=== PATIENT | female | born 1965 | race Caucasian/White ===

== ENCOUNTER → 2017-04-17 | Outpatient (CLI) | payer BC | END | disposition home or self-care (01) | LOC: C.LABMFLN 13:17 | PROVIDERS: ATTEND Family Medicine | DX: E83.52 Hypercalcemia (principal) ==

== ENCOUNTER 2024-06-13 06:00 | Inpatient (IN) ==
--- NOTE | 2024-05-08 14:28 | PAT Medication Instructions ---
Medication Instructions Date of Service May 08, 2024 Home Medications Medication Instructions Recorded hydroxyzine HCl 25 mg tablet 25 mg PO HS PRN insomnia #90 tabs 09/02/19 hydroxyzine HCl 25 mg tablet 25 mg PO HS PRN insomnia atorvastatin 20 mg tablet 20 mg PO PM cyclobenzaprine 10 mg tablet 10 mg PO UD PRN Pain fenofibrate nanocrystallized 145 mg tablet 145 mg PO QPM meclizine 25 mg tablet 25 mg PO DAILY PRN Dizziness meloxicam 15 mg tablet 15 mg PO QPM multivitamin 1 tab PO QAM omega-3 acid ethyl esters 1 gram capsule 1 cap PO QAM ASK your surgeon for instructions meloxicam 15 mg tablet 15 mg PO QPM STOP taking 2 weeks before surgery (or as soon as possible if surgery is within 2 weeks) omega-3 acid ethyl esters 1 gram capsule 1 cap PO QAM STOP taking 24 hours before surgery fenofibrate nanocrystallized 145 mg tablet 145 mg PO QPM DO NOT take the morning of surgery multivitamin 1 tab PO QAM Take morning of surgery With a small sip of water, OTHERWISE NOTHING TO EAT OR DRINK AFTER MIDNIGHT: cyclobenzaprine 10 mg tablet 10 mg PO UD PRN Pain (if needed) meclizine 25 mg tablet 25 mg PO DAILY PRN Dizziness (if needed) Take evening before surgery hydroxyzine HCl 25 mg tablet 25 mg PO HS PRN insomnia (if needed) atorvastatin 20 mg tablet 20 mg PO PM cyclobenzaprine 10 mg tablet 10 mg PO UD PRN Pain (if needed) meclizine 25 mg tablet 25 mg PO DAILY PRN Dizziness (if needed) Other Notes If you have any questions please call us at [phone] or [phone] or [phone] or [phone]
--- NOTE | 2024-05-14 10:52 | Anesthesiology Consultation ---
Date of Service May 14, 2024 Assessment & Plan (1) Encounter for pre-operative examination: - Infectious disease screening: Per assessment on 05/14/24- No known recent infectious disease contacts or current infectious disease symptoms. - Patient acceptable risk for surgery pending surgeon-ordered PCP preop evaluation (Dr. David Floyd, appt 05/24). Chart Review Chart Review: Patient seen in Pre Admission Testing Teaching & Discussion Pre-Anesthesia Teaching/Discussion Notes: Instructed NPO after midnight before surgery,except medications with 15 cc of water. Medication instructions provided according to the PAT guidelines. History Surgery Operation Date: 06/13/24 09:05 Proposed Procedures p L4-L5 Decompression and Fusion with Spinal Cord Monitoring - Gurwinder Kee, Height/Weight Height: 5 ft 6 in Weight: 89.9 kg Allergies Allergy/AdvReac Type Severity Reaction Status Date / Time amoxicillin Allergy Intermediate lips and Verified 05/08/24 13:08 hands itching cephalexin Allergy Intermediate lips and Verified 05/08/24 13:08 hands itching doxycycline Allergy Intermediate lips and Verified 05/08/24 13:08 hands itching Medications Home Medications Medication Instructions Recorded Confirmed Last Taken hydroxyzine HCl 25 mg tablet 25 mg PO HS PRN insomnia #90 tabs 09/02/19 05/08/24 Unknown atorvastatin 20 mg tablet 20 mg PO PM 05/08/24 05/08/24 Unknown cyclobenzaprine 10 mg tablet 10 mg PO UD PRN Pain 05/08/24 05/08/24 Unknown fenofibrate nanocrystallized 145 145 mg PO QPM 05/08/24 05/08/24 Unknown mg tablet meclizine 25 mg tablet 25 mg PO DAILY PRN Dizziness 05/08/24 05/08/24 Unknown meloxicam 15 mg tablet 15 mg PO QPM 05/08/24 05/08/24 Unknown multivitamin 1 tab PO QAM 05/08/24 05/08/24 Unknown omega-3 acid ethyl esters 1 gram 1 cap PO QAM 05/08/24 05/08/24 Unknown capsule Past Medical History Medical History Anxiety Arthritis Benign positional vertigo Chronic obstructive pulmonary disease Degenerative disc disease Fibromyalgia Hyperlipidemia Osteoarthritis, generalized Exercise / Class Metabolic Activity II 4-5 Yardwork/Stairs/Walk up hill (one FS: No CP, no SOB) Past Family History Family History Other No family history of adverse response to anesthesia Past Surgical History Surgical History H/O tooth extraction Strabismus Repaired as a child Past Anesthesia History No Hx of Anesthesia Complications and No Family Hx of Anesthesia Complications History of PONV No Hx of PONV and No Hx of Motion Sickness Social History Smoking Status: Current some day smoker Do You Dip or Chew Tobacco: No Smoking End Date: Quit regular use in 2021, Quit entirely 04/2024 Hx Alcohol Use: Yes Alcohol type: hard liquor alcohol intake frequency: a few times a week Hx Substance Use: No substance use type: does not use Review of Systems Patient denies chest pain, shortness of breath, dyspnea on exertion, fever, chills, cough, wheezing, palpitations. Physical Exam Vital Signs BP 120/83 P 81 TEMP 97.7 SP02 95%RA RESP 16 Physical Full cervical extension range of motion. Full TMJ range of motion. TMD > 3.5 finger breaths Mallampati Score II Dentition: intact, + upper front implants Lungs: clear throughout to auscultation Cardiac: regular rate and rhythm, no murmurs noted Spine: normal Carotid arteries: negative bruit Extremities: no LE edema Lab Results Anesthesia Preop Results Results Anesthesia Widget: WBC 8.25 K/ul (4.8-10.8) 05/14/24 Hgb 13.4 g/dl (12.0-16.0) 05/14/24 Hct 40.0 % (37.0-47.0) 05/14/24 Plt 322 K/uL (130-400) 05/14/24 Na 138 mmol/L (136-145) 05/14/24 K 4.3 mmol/L (3.5-5.1) 05/14/24 Cl 104 mmol/L (98-107) 05/14/24 CO2 25 mmol/L (21-32) 05/14/24 BUN 26 mg/dl (6-23) H 05/14/24 Creat 0.86 mg/dl (0.6-1.2) 05/14/24 Glucose Level 90 mg/dl (70-99(Fasting)) 05/14/24 PT 10.3 Seconds (9.0-12.0) 05/14/24 PTT 29 Seconds (21-31) 05/14/24 INR 0.9 (0.9-1.1) 05/14/24 Urine Color Yellow 05/14/24 Urine Appearance Clear (Clear) 05/14/24 Urine pH 5.5 (4.5-7.5) 05/14/24 Urine Specific Momence 1.009 (1.000-1.030) 05/14/24 Urine Protein Negative (Negative) 05/14/24 Urine Glucose (UA) Negative (Negative) 05/14/24 Urine Ketones Negative (Negative) 05/14/24 Urine Blood Negative (Negative) 05/14/24 Urine Nitrite Negative (Negative) 05/14/24 Urine Bilirubin Negative (Negative) 05/14/24 Urine Urobilinogen Negative (Negative) 05/14/24 Urine Leukocyte Esterase Negative (Negative) 05/14/24 Blood Type O Positive 05/14/24 Antibody Screen NEGATIVE 05/14/24 Testing Electrocardiogram Date: 05/14/24 NSR at 72bpm. "Normal ECG" Chest X-Ray Date: 05/14/24 FINDINGS: Lung volumes are normal. Lungs are clear. There is no pneumothorax or pleural effusion. Cardiac size is normal. Mediastinal contours are normal. There is no evidence for pulmonary edema. IMPRESSION: No acute cardiopulmonary findings.
[~2024-06-13 06:00] MED LIST: LR 15ML/HR IV SCH; LR 60ML/HR IV SCH; ceFAZolin 2000MG 2,000 MG/15 ML SYR IV SCH
[2024-06-13] MEDS: SODIUM CHLORIDE 0.9% 1,000 ML IV SCH ×2 (06:37→11:02)
[2024-06-13] MEDS: CeleBREX 200 MG CAP PO SCH (06:38)
[2024-06-13] MEDS: GABAPENTIN 600 MG DOSE PO SCH (06:38)
[2024-06-13] MEDS: ACETAMINOPHEN 500 MG TAB PO SCH (06:38)
[2024-06-13] MEDS ORDERED: ONDANSETRON INJ 2 MG/ML 2 ML VIAL ONE (06:43)
[2024-06-13] MEDS ORDERED: LIDOCAINE 2% 2 ML VIAL/AMP(20MG/ML) INFIL ONE (06:43)
[2024-06-13] MEDS ORDERED: DEXAMETHASONE SOD INJ 4 MG/ML VIAL ONE (06:43)
[2024-06-13] MEDS ORDERED: MIDAZOLAM HCL 1 MG/ML 2ML VIAL ONE (06:43)
[2024-06-13] MEDS ORDERED: ROCURONIUM BROMIDE 10 MG/ML 5 ML VIAL IV ONE (06:43)
[2024-06-13] MEDS ORDERED: PROPOFOL IV EMULSION 10 MG/ML 20 ML VIAL IV ONE (06:43)
[2024-06-13] MEDS ORDERED: fentaNYL citrate PF 100 MCG/2 ML VIAL ONE ×2 (06:43→09:18)
[2024-06-13] MEDS ORDERED: ePHEDrine sulfate 50 MG/ML AMP IV PRN (07:12)
[2024-06-13] MEDS ORDERED: ATROPINE SULFATE 0.1 MG/ML 10ML SYR IV PRN (07:12)
[2024-06-13] MEDS ORDERED: DROPERIDOL 5 MG/2 ML VIAL IV PRN (07:12)
[2024-06-13] MEDS ORDERED: PROMETHAZINE HCL 6.25 MG in SODIUM CHLORIDE 0.9% 50 ML IV PRN (07:12)
--- NOTE | 2024-06-13 07:32 | History & Physical Bridge Note ---
Date of Service June 13, 2024 History & Physical Bridge Note I have examined the patient, reviewed the History & Physical and in the interval since the performance of the History & Physical I have noted the following changes of clinical significance: no changes noted
--- NOTE | 2024-06-13 07:33 | History & Physical Report ---
Date of Service June 13, 2024 Assessment & Plan (1) Lumbar disc herniation with radiculopathy: Plan: L4-L5 decompression and fusion History of Present Illness Chief Complaint: Back and bilateral leg pain Primary Care Provider: David Floyd DO This is a 59-year-old female presents with chronic persistent back and leg pain after failing course of nonoperative care is here for surgical invention. Allergies Allergy/AdvReac Type Severity Reaction Status Date / Time amoxicillin Allergy Intermediate lips and Verified 06/13/24 06:17 hands itching cephalexin Allergy Intermediate lips and Verified 06/13/24 06:17 hands itching doxycycline Allergy Intermediate lips and Verified 06/13/24 06:17 hands itching Home Medications Medication Instructions Recorded Confirmed Type hydroxyzine HCl 25 mg tablet 25 mg PO HS PRN insomnia #90 tabs 09/02/19 06/13/24 Rx atorvastatin 20 mg tablet 20 mg PO PM 05/08/24 06/13/24 History cyclobenzaprine 10 mg tablet 10 mg PO UD PRN Pain 05/08/24 06/13/24 History fenofibrate nanocrystallized 145 145 mg PO QPM 05/08/24 06/13/24 History mg tablet meclizine 25 mg tablet 25 mg PO DAILY PRN Dizziness 05/08/24 06/13/24 History meloxicam 15 mg tablet 15 mg PO QPM 05/08/24 06/13/24 History multivitamin 1 tab PO QAM 05/08/24 06/13/24 History omega-3 acid ethyl esters 1 gram 1 cap PO QAM 05/08/24 06/13/24 History capsule Past Med/Surg History Problem List (Updated 06/13/24 @ 07:33 by Gurwinder Kee DO) Lumbar disc herniation with radiculopathy Allergic rhinitis Depression with anxiety (Chronic) COPD (chronic obstructive pulmonary disease) (Chronic) Hyperlipemia, idiopathic familial (Chronic) Vitamin D deficiency (Chronic) Medical History Anxiety Arthritis Benign positional vertigo Chronic obstructive pulmonary disease Degenerative disc disease Fibromyalgia Hyperlipidemia Osteoarthritis, generalized Surgical History H/O tooth extraction Strabismus Repaired as a child Family History Other No family history of adverse response to anesthesia Social History (Updated 09/04/19 @ 08:39 by Stacy Johnson MA) Smoking Status: Current some day smoker Tobacco Type: Cigarettes Smoking End Date: Quit regular use in 2021, Quit entirely 04/2024; Second Hand Exposure: Yes (in the past); Do You Dip or Chew Tobacco: No; Hx Alcohol Use: Yes Alcohol type: hard liquor Hx Substance Use: No Preferred Language: Spanish 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
[2024-06-13] MEDS: CLINDAMYCIN 900 MG/D5W 50 ML BAG IV ONE (07:41)
[2024-06-13] MEDS: BUPIVACAINE/EPINEPHRINE 0.25% 1:200,000 30 ML VIAL ONE (08:05)
[2024-06-13] MEDS: ceFAZolin 330 MG/ML 1 GM VIAL ONE (08:19)
[2024-06-13] MEDS ORDERED: ALBUTEROL HFA 8 GM INHALER INH ONE (08:52)
[2024-06-13] MEDS: FLOSEAL HEMOSTATIC MATRIX 10ML TOP ONE (09:09)
[2024-06-13] MEDS ORDERED: SUGAMMADEX SODIUM 200 MG/2 ML VIAL IV ONE (09:11)
[2024-06-13] MEDS ORDERED: HYDROmorphone INJ 2 MG/ML SYR/VIAL ONE (09:21)
--- NOTE | 2024-06-13 09:28 | Operative Report ---
Post Operative Report Pre & Post Diagnosis Operation Date: 06/13/24 07:45 Pre-Op Diagnosis: #1 lumbar spondylolisthesis with radiculopathy Post-Op Diagnosis: same I identified the patient and participated in the time-out.: Yes Procedure Operation Date: 06/13/24 07:45 Actual Procedures #1 lumbar decompression bilateral medial facetectomies and foraminotomies L3-L4 L4-5. #2 posterior spinal fusion L4-L5. #3 posterior instrumentation L4-5 #4 interbody fusion L4-5 per #5 placement of Spira 13 x 26 mm x 2 at L4-5 per #6 placement locally harvested morselized autograft posterior gutters. #7 placement is collagen sponge, with Koros in the posterior lateral gutters and os design interbody space. #8 placement of versa wrap of the exposed dura. Surgeon Gurwinder Kee, Hammer Runner None Estimated Blood Loss 50 Findings Consistent with Post-Op Diagnosis Specimens None Indications This is a 59-year-old female presents publish diagnosis of failed course of nonoperative care is here for surgical invention. Description of Procedure Patient was met with identified informed consent obtained. Patient was then taken to the operative suite underwent and patient placed in a prone position on the Travis table atop the Peter frame. All bony promises well-padded eyes inspected to ensure no external precipice upon the. This point the lumbar spine was prepped and draped in normal sterile fashion. Sharp dissection with the assistance of Bovie cautery 12 down to and exposing the lamina and transverse processes of L4-L5. From caudal to cephalad fashion complete laminectomy of L4 was performed including bilateral medial facetectomies and foraminotomies addressing severe subarticular and foraminal stenosis. This did include partial laminectomy of L3 with bilateral medial facetectomies to address all subarticular disease. Pedicle screws were then placed at L4-5 bilaterally with assistance of fluoroscopy and appropriately sized rods placed. By way of a transforaminal portion right a complete discectomy of L4-5 was performed endplates grade 2 subcortical bleeding bone 13 x 26 mm Spira cage filled with os design bone graft tapped in position. Then proceeded to the left transforaminal region at L4-5. Again discectomy performed endplates guarded to subcortical mean bone and a second 13 x 26 mm spiral cage filled with os designed tapped in position. The rods were then compressed locked into final position bilaterally. The transverse processes of L4-5 burred to subcortical bleeding bone. Infuse collagen sponge combined with Koros and local autograft placed in posterior gutters. Versa wrap placed over the exposed dura. 15 round JEANNE drain inserted. Incision was then closed with 1 Vicryl fascia 2-0 Vicryl subcutaneously and 4 Monocryl for final skin closure. Steri-Strips sterile dressing placed. Patient waken taken PACU stable condition. Please note spinal cord monitoring was utilized at the procedure no changes noted. Im ordering 20 grams of Triple Albert Lea Collagen Powder ([employer] [id number]) to treat an incision wound that was caused by a spine procedure. The incision is approximately 2 cm(W) x 4 cm(L) into the joint (D) in size and is a full thickness wound. Triple Albert Lea collagen comes in 1 gram packets so 20 packets were ordered. Given the size of the wound, with light to moderate exudate I chose to order a 20 day supply. The patient will be provided instructions for proper application of the collagen wound kit. The patient will be asked to apply the collagen powder daily and then cover it with sterile dressings dispensed. Collagen was selected as I expect the collagen to attract monocytes and fibroblasts, act as a sacrificial substrate for MMPs, and ultimately proved a matrix for tissue and vessel growth. The collagen will act as a primary dressing in this scenario. It is medically necessary for proper healing of these wounds to improve bioavailability and contact with each wound surface, this is also to help prevent infection of wounds and promote healing ultimately leading to a better healing outcome and limit the risk of infection. I attest to the content of the Intraoperative Record and any orders documented therein. Any exceptions are noted below.
--- NOTE | 2024-06-13 09:33 | Fluoroscopy Report ---
FL lumbar spine 2-3V CLINICAL HISTORY: L4-L5 DECOMPRESSION COMPARISON STUDY: None FLUOROSCOPY TIME: 16.3 seconds FLUOROSCOPY IMAGES: 2 EXPOSURE DOSE: 11.78 mGy FINDINGS: Laminectomy with discectomy, posterior interbody livia and screw fusion at L4-L5. No unexpect ed opaque foreign bodies. The hardware appears intact. IMPRESSION: Fluoroscopic assistance as above. ACT 112: Negative or not required by law. Electronically signed by: Kenny Atkinson M.D. 06/13/2024 9:31 AM
[2024-06-13] MEDS: HYDROmorphone INJ 2 MG/ML SYR/VIAL IV PRN (10:06)
[2024-06-13] MEDS ORDERED: ALUMINUM/MAGNESIUM SUSP 30 ML UDC PO PRN (11:07)
[2024-06-13] MEDS ORDERED: LORazepam 2 MG/1 ML VIAL IV PRN (11:07)
[2024-06-13] MEDS ORDERED: DO NOT ADMINISTER PNEUMOCOCCAL VACCINE PRN (11:07)
[2024-06-13] MEDS ORDERED: SOD PHOSPHATE/SOD BIPHOSPHATE ENEMA 132 ML BTL PR PRN (11:07)
[2024-06-13] MEDS ORDERED: bisacodyL 10 MG SUPP PR PRN (11:07)
[2024-06-13] MEDS ORDERED: FAMOTIDINE 20 MG TAB PO PRN (11:07)
[2024-06-13] MEDS ORDERED: DO NOT ADMINISTER FLU VACCINE PRN (11:07)
[2024-06-13] MEDS ORDERED: hydrOXYzine HCl 25 MG TAB PO PRN ×2 (11:07)
[2024-06-13] MEDS ORDERED: HYDROmorphone INJ 0.5 MG/0.5 ML SYR IV PRN (11:07)
[2024-06-13] MEDS ORDERED: ONDANSETRON 4 MG OD TAB PO PRN (11:07)
[2024-06-13] MEDS ORDERED: MECLIZINE HCL 25 MG TAB PO PRN (11:07)
[2024-06-13] MEDS ORDERED: MAGNESIUM HYDROXIDE SUSP 30 ML UDC PO PRN (11:07)
[2024-06-13] MEDS ORDERED: HYDROmorphone INJ 1 MG/ML SYRINGE IV PRN (11:07)
[2024-06-13] MEDS ORDERED: NALOXONE HCL 0.4 MG/1 ML VIAL/CARP IV PRN (11:07)
[2024-06-13] MEDS ORDERED: ACETAMINOPHEN 500 MG TAB PO PRN (11:07)
[2024-06-13] MEDS ORDERED: LORazepam 0.5 MG TAB PO PRN (11:07)
[2024-06-13] MEDS ORDERED: diphenhydrAMINE Capsule 25 MG CAP PO PRN (11:07)
[2024-06-13] MEDS: ONDANSETRON INJ 2 MG/ML 2 ML VIAL IV PRN (11:20)
[2024-06-13] MEDS: ALLERGY Noted to ORDERED Medication SCH (11:38)
[2024-06-13] MEDS: ACETAMINOPHEN 1,000 MG/100 ML VIAL IV PRN (11:59)
--- NOTE | 2024-06-13 12:24 | Hospitalist Consultation ---
Date of Consultation June 13, 2024 Assessment & Plan (1) Lumbar disc herniation with radiculopathy: S/p L4L5 decompression and fusion with spinal cord monitoring - Pain management, VTE PPx, and bowel regimen per surgical team - Pre-op H&H stable, renal function stable, EKG NSR - CBC + BMP am - Nausea following surgery- pending EKG to ensure QT appropriate (2) COPD (chronic obstructive pulmonary disease): H/o COPD - Stable, on 2L O2 via NC; wean as patient tolerates - No O2 at baseline - No evidence of exacerbation today - No home medications Plan HLD- Atorvastatin, fenofibrate Dispo: Admit Diet: Clear liquids, increase as tolerated VTE Prophylaxis: per surgical team Code: Full Supervising Physician Co-Signing Physician Notes I personally saw and examined the patient. I independently reviewed the labs, problem list, medication list, past medical history and family history. I verified all hernandez points and agree with Patel Brown PA-C with the following exceptions and/or additions: 59 year old POD#0 lumbar spinal decompression performed by Dr Kee today. O/E HS RRR, no murmurs, Chest CTAB, Abdo SNT, moving b/l toes with normal sensation A/P Lumbar decompression - no change in pre-operative radicular symptoms, pain control / bowel regimen by ortho spine, Hyperlipemia - continue atorvastatin Post operative mild hypoxia - incentive spirometer, wean O2 as able History of Present Illness Reason for Consultation: Medical Management Requesting Physician: Gurwinder Kee DO Attending Physician: Gurwinder Kee DO History of Present Illness 59-year-old female being evaluated for postop following L4-L5 compression and fusion with spinal cord monitoring. Patient 59-year-old female PMHx COPD, hyperlipidemia, fibromyalgia, depression and anxiety who is being evaluated today after surgical intervention. Patient resting in bed at time of visit. States pain is bothersome to her, but that she took pain medications not long ago and thinks it is helping some. Having complaints of nausea, no emesis. No current additional complaints to include chest pain, shortness of breath, palpitations, abdominal pain, N/D/C, numbness or tingling, LUTS, or headaches. Please see Dr. Negrete's attestation for adjustments/additions to treatment plan. Allergies Allergy/AdvReac Type Severity Reaction Status Date / Time amoxicillin Allergy Intermediate lips and Verified 06/13/24 06:17 hands itching cephalexin Allergy Intermediate lips and Verified 06/13/24 06:17 hands itching doxycycline Allergy Intermediate lips and Verified 06/13/24 06:17 hands itching Home Medications Medication Instructions Recorded Confirmed Type hydroxyzine HCl 25 mg tablet 25 mg PO HS PRN insomnia #90 tabs 09/02/19 06/13/24 Rx atorvastatin 20 mg tablet 20 mg PO PM 05/08/24 06/13/24 History cyclobenzaprine 10 mg tablet 10 mg PO UD PRN Pain 05/08/24 06/13/24 History fenofibrate nanocrystallized 145 145 mg PO QPM 05/08/24 06/13/24 History mg tablet meclizine 25 mg tablet 25 mg PO DAILY PRN Dizziness 05/08/24 06/13/24 History meloxicam 15 mg tablet 15 mg PO QPM 05/08/24 06/13/24 History multivitamin 1 tab PO QAM 05/08/24 06/13/24 History omega-3 acid ethyl esters 1 gram 1 cap PO QAM 05/08/24 06/13/24 History capsule Patient History Medical History Degenerative disc disease Fibromyalgia Arthritis Anxiety Hyperlipidemia Chronic obstructive pulmonary disease Benign positional vertigo Osteoarthritis, generalized Surgical History H/O tooth extraction Strabismus Repaired as a child Family History Other No family history of adverse response to anesthesia Social History Smoking Status: Current some day smoker Tobacco Type: Cigarettes Smoking End Date: Quit regular use in 2021, Quit entirely 04/2024; Second Hand Exposure: Yes (in the past); Do You Dip or Chew Tobacco: No; Hx Alcohol Use: Yes Alcohol type: hard liquor Hx Substance Use: No Preferred Language: Austrian Display Artist Required: No Beliefs That Will Affect Care: None Current Living Situation: Spouse Feels Safe at Home: Yes Safety Concerns: Feels Safe At This Time Assistive Devices: Glasses Review of Systems Review of Systems: All systems reviewed & are unremarkable except as noted in Subjective Physical Exam Physical Exam: General: No acute distress, laying in bed, eyes closed but talking to me Skin: Warm and dry, without rashes or lesions Head: Normocephalic, atraumatic Eyes: PERRL, conjunctivae clear, sclera non-icteric ENT: External ear and ear canal without swelling; nose atraumatic; good dentition Neck: Supple, no LAD Cardio: RRR, no M/G/R, S1 and S2 normal Resp: No respiratory distress, Lungs CTA in all lobes bilaterally, no wheezes, rales, or rhonchi Abdomen: Soft, symmetric, nontender; No masses or hepatosplenomegaly; Bowel sounds normoactive MSK: No deformities; pulses palpable and equal; no edema. Neuro: Awake, alert; CN grossly intact Psych: Appropriate mood and affect; good judgement and insight. 2 family members present in room at time of visit. Results & Data Results & Data Vital Signs (Past 12 Hours) Vital Signs Temp Pulse Pulse Resp BP BP Pulse Ox 06/13/24 12:08 36.4 C L 80 14 131/66 96 06/13/24 11:35 36.4 C L 70 16 111/70 99 06/13/24 11:07 36.3 C L 73 14 119/75 94 06/13/24 10:50 71 18 122/64 99 06/13/24 10:40 62 18 109/58 L 97 06/13/24 10:30 78 16 122/75 95 06/13/24 10:20 36.5 C 67 14 126/66 97 06/13/24 10:10 78 12 127/67 96 06/13/24 10:00 66 14 124/69 97 06/13/24 09:50 69 12 113/70 96 06/13/24 09:45 73 12 129/75 98 06/13/24 09:39 36.4 C L 74 14 149/98 H 97 06/13/24 06:29 37.3 C 73 18 153/98 H 98 O2 Del Method O2 Flow Rate 06/13/24 12:08 Nasal Cannula 2 06/13/24 11:35 Nasal Cannula 2.0 06/13/24 11:07 Nasal Cannula 2 06/13/24 10:50 Nasal Cannula 2 06/13/24 10:40 Nasal Cannula 2 06/13/24 10:30 Nasal Cannula 2 06/13/24 10:20 Nasal Cannula 2 06/13/24 10:10 Nasal Cannula 2 06/13/24 10:00 Oxymask 6 06/13/24 09:50 Oxymask 6 06/13/24 09:45 Oxymask 6 06/13/24 09:39 Oxymask 6 06/13/24 06:29 Room Air PG Care Time/CCT Total # of Minutes Spent Total Time Spent with Patient: Total time spent is greater than 50% in coordination of care (as documented) at patient's floor/unit and/or counseling patient: Coding Level of Care Code 61805 IN/OBS CONSULT LVL 3,45M Diagnoses Lumbar disc herniation with radiculopathy M51.16 COPD (chronic obstructive pulmonary disease) J44.9 Time Spent (min) 30
[2024-06-13] MEDS: METOCLOPRAMIDE HCL INJ 5 MG/ML 2 ML VIAL IV PRN (14:13)
--- NOTE | 2024-06-13 15:02 | Electrocardiogram Report ---
Test Reason : Blood Pressure : */* mmHG Vent. Rate : 70 BPM Atrial Rate : 70 BPM P-R Int : 212 ms QRS Dur : 88 ms QT Int : 426 ms P-R-T Axes : 47 60 36 degrees QTcB Int : 460 ms Poor data quality, interpretation may be adversely affected Sinus rhythm with 1st degree A-V block Otherwise normal ECG When compared with ECG of 14-May-2024 11:10, NV interval has increased Confirmed by Davidson Nixon ([id number] on 06/13/2024 3:02:13 PM Referred By: Gurwinder Kee Confirmed By: Davidson Nixon
--- NOTE | 2024-06-13 15:26 | Anesthesiology Progress Note ---
Date of Service June 13, 2024 Anesthesia Post Procedure Vital Signs Vital Signs: Temp Pulse Pulse Resp BP BP Pulse Ox 06/13/24 14:06 36.5 C 75 16 110/73 99 06/13/24 13:10 36.5 C 76 16 128/85 95 06/13/24 12:08 36.4 C L 80 14 131/66 96 06/13/24 11:35 36.4 C L 70 16 111/70 99 06/13/24 11:07 36.3 C L 73 14 119/75 94 06/13/24 10:50 71 18 122/64 99 06/13/24 10:40 62 18 109/58 L 97 06/13/24 10:30 78 16 122/75 95 06/13/24 10:20 36.5 C 67 14 126/66 97 06/13/24 10:10 78 12 127/67 96 06/13/24 10:00 66 14 124/69 97 06/13/24 09:50 69 12 113/70 96 06/13/24 09:45 73 12 129/75 98 06/13/24 09:39 36.4 C L 74 14 149/98 H 97 06/13/24 06:29 37.3 C 73 18 153/98 H 98 O2 Del Method O2 Flow Rate 06/13/24 14:06 Nasal Cannula 2.0 06/13/24 13:10 Nasal Cannula 2 06/13/24 12:08 Nasal Cannula 2 06/13/24 11:35 Nasal Cannula 2.0 06/13/24 11:07 Nasal Cannula 2 06/13/24 10:50 Nasal Cannula 2 06/13/24 10:40 Nasal Cannula 2 06/13/24 10:30 Nasal Cannula 2 06/13/24 10:20 Nasal Cannula 2 06/13/24 10:10 Nasal Cannula 2 06/13/24 10:00 Oxymask 6 06/13/24 09:50 Oxymask 6 06/13/24 09:45 Oxymask 6 06/13/24 09:39 Oxymask 6 06/13/24 06:29 Room Air Pain Intensity Back: Pain Intensity: 6 Transfer of Care Handoff Completed per policy Notes Mental Status: alert / awake / arousable and participated in evaluation Nausea / Vomiting: adequately controlled Pain: adequately controlled Airway Patency, RR, SpO2: stable & adequate BP & HR: stable & adequate Hydration State: stable & adequate Anesthetic Complications: no major complications apparent and Pt Satisfied with anesthetic care
[2024-06-13] MEDS: CLINDAMYCIN/D5W 600 MG/50 ML BAG IV SCH (15:43)
[2024-06-13] MEDS: PROMETHAZINE 12.5 MG/50.5 ML BAG IV PRN (17:49)
[2024-06-13] MEDS: ATORVASTATIN 20 MG TAB PO SCH (20:06)
[2024-06-13] MEDS: FENOFIBRATE NANOCRYSTALLIZED 145 MG TABLET PO SCH (20:06)
[2024-06-13] MEDS: DOCUSATE SODIUM/SENNA 50/8.6MG TAB PO SCH (20:06)
[2024-06-13] MEDS: traMADol HCL 50 MG TABLET PO PRN (20:09)
[2024-06-14] MEDS: POLYETHYLENE (MIRALAX) 17 GM PACK PO SCH (05:35)
[2024-06-14 06:29] LABS: Basophils # (auto) 0.02 K/uL (0.00-0.20); Basophils % (auto) 0.2 %; Eosinophils # (auto) 0.05 K/uL (0.00-0.50); Eosinophils % (auto) 0.5 %; Hemoglobin 10.4 g/dl (12.0-16.0); Immature Granulocytes # (auto) 0.05 K/uL (0.01-0.20); Immature Granulocytes % (auto) 0.5 %; Lymphocytes # (auto) 2.76 K/uL (1.20-3.40); Mean Corpuscular Hemoglobin 29.2 pg (25.0-34.0); Mean Corpuscular Hgb Conc 32.5 g/dL (32.0-36.0); Mean Corpuscular Volume 89.9 fL (80.0-100.0); Mean Platelet Volume 9.7 fL (9.4-12.4); Monocytes # (auto) 0.81 K/uL (0.11-0.59); Monocytes % (auto) 7.9 %; Neutrophils # (auto) 6.55 K/uL (1.40-6.50); Neutrophils % (auto) 63.9 %; Platelet Count 277 K/uL (130-400); RDW Standard Deviation 42.7 fL (36.4-46.3); Red Blood Count 3.56 M/uL (4.20-5.40); White Blood Count 10.24 K/ul (4.8-10.8)
[2024-06-14 06:34] LABS: BUN Creatinine Ratio 29.9 (10-20); Creatinine Clr Calc Pharmacy 88.2 ml/min; Potassium 3.9 mmol/L (3.5-5.1)
[2024-06-14] MEDS: oxyCODONE HCL IR 5 MG TAB (IMMEDIATE RELEASE) PO PRN (07:40)
[2024-06-14] MEDS: MULTIVITAMIN TAB PO SCH (07:42)
[2024-06-14] MEDS: dexAMETHasone 6 MG in SYRINGE 0 ML IV SCH (07:44)
--- NOTE | 2024-06-14 12:34 | Orthopedic Progress Note ---
Date of Service June 14, 2024 Assessment & Plan (1) Lumbar disc herniation with radiculopathy: Plan: At this time we will continue physical therapy monitor her JEANNE operatively discharge home in the next few days. Admission and Anticipated Discharge Date Admission Date: June 13, 2024 Subjective Back pain is controlled leg symptoms improved Physical Exam Physical Exam: Patient is currently in bed. She comfortable. Good strength testing. Results & Data Vital Signs (Past 12 Hours) Vital Signs Temp Pulse Resp BP BP Pulse Ox O2 Del Method 06/14/24 07:23 36.6 C 78 18 108/69 97 Room Air 06/14/24 02:53 36.5 C 81 20 148/75 H 98 Room Air Queries Orthopedic Spine Obesity: Yes
[2024-06-15 07:14] VITALS: BP 125/77; PULSE 91; RESP 18; TEMP 98.2; O2SAT 95
[2024-06-15 07:28] LABS: Hematocrit (blood only) 33.8 % (37.0-47.0); Mean Corpuscular Hemoglobin 29.3 pg (25.0-34.0); Mean Corpuscular Hgb Conc 32.5 g/dL (32.0-36.0); Mean Corpuscular Volume 89.9 fL (80.0-100.0); Mean Platelet Volume 9.4 fL (9.4-12.4); Platelet Count 252 K/uL (130-400); RDW Standard Deviation 42.9 fL (36.4-46.3); Red Blood Count 3.76 M/uL (4.20-5.40); White Blood Count 9.17 K/ul (4.8-10.8)
--- NOTE | 2024-06-15 08:41 | Discharge Summary ---
Date of Service June 15, 2024 Admission HPI Per Admitting Provider This is a 59-year-old female presents with chronic persistent back and leg pain after failing course of nonoperative care is here for surgical invention. Principal Diagnosis Lumbar spinal stenosis with radiculopathy Discharge Data Allergies Allergy/AdvReac Type Severity Reaction Status Date / Time amoxicillin Allergy Intermediate lips and Verified 06/13/24 06:17 hands itching cephalexin Allergy Intermediate lips and Verified 06/13/24 06:17 hands itching doxycycline Allergy Intermediate lips and Verified 06/13/24 06:17 hands itching Consultations 06/13/24 11:07 Consult Hospitalist Routine Procedures Performed Operation Date: 06/13/24 07:45 Actual Procedures p L4-L5 Decompression and Fusion with Spinal Cord Monitoring(Not Applicable) - Gurwinder Kee DO Ordered Studies 06/13/24 07:45 [place] lumbar spine 2-3V Routine Hospital Course (1) Lumbar disc herniation with radiculopathy: Patient underwent lumbar decompression fusion tolerated this well was taken to orthopedic for postoperative. Postop patient progressed appropriately. Ambulating the halls. Pain well-controlled. JEANNE drain decreasing. Extra strength testing. Subsequently discharged home. Discharge orders instructions from the chart for further review. Total Time Total Time Spent Total Time Spent (In Minutes): 20 minutes Discharge Plan Discharge Items Patient Disposition: Home - Self-Care Reason For Visit: Spinal Stenosis, Lumbar Region with Neurogenic Cla Discharge Diagnosis: lumbar stenosis Activity: As commented below Non-emergency contact: Primary Care Provider Call non-emergency contact if: you have any medication questions Follow-up/Referrals: David Floyd DO [Primary Care Provider] - Diet: Regular Addtl Attending Provider Instructions: ACTIVITY RECOMMENDATIONS: SELF CARE INSTRUCTIONS AFTER THORACIC/LUMBAR FUSIONS 1. You may walk to your tolerance. It is good exercise for your legs and back. Expect some back and intermittent leg aches and pains. 2. You may perform "counter-top" level activities (make a sandwich, freddy with a project, etc.). 3. No bending or lifting of more than 10 pounds or back twisting of any nature (roll like a log when turning in bed). 4. You may ride in a car for 20-30 minutes at a time. No driving until after your first visit with your doctor. 5. Frequent changes of position and restricting sitting to 30 minutes at a time will help limit the amount of back spasms and stiffness you may experience. 6. You may discontinue the use of ambulatory aids (cane, crutches, etc.) once your strength and confidence allow. 7. You may coding assistant the shower and let water strike your incision when you arrive home at least once daily. Do not take a tub bath, sit in a hot tub or go into a swimming pool until after your first recheck in the office. 8. You may resume previous diet. SPECIAL CARE INSTRUCTIONS: VERY IMPORTANT TO READ AND REVIEW A. Your surgical incision has been closed with a cosmetic suture under the skin that will dissolve in about 6 weeks. In 14 days, you can use a pair of clean scissors and cut the suture that is left outside of the skin at the ends of your incision. 1. The small skin tapes can be removed 7 days after surgery if they have not fallen off by that point. 2. You may keep the wound open to air as much as possible to promote healing after post-op day number 5 unless told otherwise by your doctor. 3. If you think the wound looks like it is becoming infected (redness or worsening drainage) and/or you are experiencing fever, chill or worsening back pain and muscle spasms, contact the office so that we may evaluate you as soon as possible. B. Complications are uncommon, but please contact us if you have any signs or symptoms of: 1. wound infection (fever higher than 102.5 degrees F, redness, separation of wound, drainage, or increasing pain from the incision) 2. blood clots in legs (pain, swelling, redness and warmth in legs) 3. urinary tract infection (fever higher than 102.5 degrees F, burning upon urination or increased frequency of urination) 4. nerve problems (inability to walk on your toes or heels, numbness, loss of bowel or bladder control) 5. any other symptoms that concern you C. Please call the office at if you have any concerns or questions about your operation or recovery. D. No smoking! Smoking drastically decreases the chance of a solid fusion. E. Do not take any anti-inflammatory medications (Indocin, Advil, Motrin, Aspirin, Naprosyn, etc.) as these may inhibit the chance of a solid fusion. Tylenol is okay to take for pain. MANAGING PAIN AFTER SPINAL SURGERY 1. Narcotic medication is intended for short-term use and will be provided for surgical pain. Surgical pain usually lasts for a period of 4-6 weeks. Narcotic medication includes Percocet, Vicodin, Darvocet, Tylenol #3 or Lortab. 2. Longer-term pain is more appropriately treated with non-narcotic medication such as Tylenol ES. 3. Muscle spasm is not appropriately treated with narcotics. Muscle relaxers such as Soma, Flexeril or Skelaxin can be used along with Tylenol ES. 4. Remember that we all live with some "aches and pains". This is not unusual or uncommon after an injury or as we get older. a. Back pain is expected and may include muscle spasms for 4 to 6 weeks after surgery. The pain should gradually improve. If the pain worsens for no apparent reason, please contact the office. b. Intermittent leg pain may also be experienced and should not be concerned about unless it worsens for no apparent reason. If so, please contact the office. 5. We will provide appropriate medication within the normal guidelines of their prescribed use. We will also be very cautious and aware of potential abuse and extended duration of patients' medication needs. a. Pain medications are for your comfort and to assist with sleep and rest so that the tissue can heal. They are not provided in order to return to normal activity and should not be used through the day. To do so or worsening pain at night can result from ongoing tissue damage and development of tolerance to the prescribed medicine. 6. Please allow 2-3 days to process refills. Prescriptions will not be mailed but must be picked up at the office. FOLLOW UP VISIT: Keep your scheduled follow-up appointment. Any questions, please call the office at . Pending Studies at Discharge: No Stand-Alone Forms: [email or web address], Smoking Cessation Medications and DC Order Prescriptions: New tramadol 50 mg tablet 50 mg PO Q6H PRN (Reason: pain, moderate) Qty: 30 0RF oxycodone 5 mg tablet 5 mg PO Q6H PRN (Reason: pain) Qty: 30 0RF Continued hydroxyzine HCl 25 mg tablet 25 mg PO HS PRN (Reason: insomnia) Qty: 90 3RF multivitamin Tablet 1 tab PO QAM atorvastatin 20 mg Tablet 20 mg PO PM meclizine 25 mg Tablet 25 mg PO DAILY PRN (Reason: Dizziness) cyclobenzaprine 10 mg tablet 10 mg PO UD PRN (Reason: Pain) meloxicam 15 mg tablet 15 mg PO QPM omega-3 acid ethyl esters 1 gram capsule 1 cap PO QAM fenofibrate nanocrystallized 145 mg tablet 145 mg PO QPM Discharge Orders: Discharge Order (Routine); Ordered 06/15/24 Ordered By: Gurwinder Kee Admission Data Admit Date/Time: 06/13/24 09:31 Attending Provider: Gurwinder Kee Admit Provider: Gurwinder Kee Primary Care Provider: David Floyd Other Providers: Neymar Dan
== END 2024-06-15 11:48 | disposition home or self-care (01) | DRG 402 ==
LOC: ASU 06:00 → 3E 09:31